=== PATIENT | female | born 1970 | race African-American/Black ===

== ENCOUNTER 2021-06-06 13:26 | Emergency (ER) | payer MEDICAID, SELFPAY ==
--- NOTE | ~2021-06-06 | XR_ITS ---
EXAMINATION: CERVICAL SPINE AND LEFT SHOULDER CLINICAL INFORMATION: Worsening neck pain and shoulder pain. COMPARISON: None TECHNIQUE: 3 views of the cervical spine and 3 views of the left shoulder FINDINGS: There is no abnormal prevertebral soft tissue swelling identified. No acute cervical spine fracture is noted. There is some degenerative disc narrowing with marginal spurring C4-C6. 3 views of the left shoulder do not demonstrate any evidence of acute fracture or dislocation. No calcific tendinitis. Glenohumeral joint appears unremarkable. No widening of the coracoclavicular space. XR/XR cervical spine 3V IMPRESSION: Mild cervical spondylosis of the cervical spine without evidence of acute fracture. No significant bony abnormality of the left shoulder.
--- NOTE | ~2021-06-06 | XR_ITS ---
EXAMINATION: CERVICAL SPINE AND LEFT SHOULDER CLINICAL INFORMATION: Worsening neck pain and shoulder pain. COMPARISON: None TECHNIQUE: 3 views of the cervical spine and 3 views of the left shoulder FINDINGS: There is no abnormal prevertebral soft tissue swelling identified. No acute cervical spine fracture is noted. There is some degenerative disc narrowing with marginal spurring C4-C6. 3 views of the left shoulder do not demonstrate any evidence of acute fracture or dislocation. No calcific tendinitis. Glenohumeral joint appears unremarkable. No widening of the coracoclavicular space. XR/XR shoulder LT min 2V IMPRESSION: Mild cervical spondylosis of the cervical spine without evidence of acute fracture. No significant bony abnormality of the left shoulder.
[2021-06-06 13:36] VITALS: BP 128/80; PULSE 68; RESP 18; TEMP 36.6; O2SAT 98; BMI 32.9
--- NOTE | 2021-06-06 13:47 | ED_ITS ---
HPI - Neck Pain/Injury General Chief Complaint: General Medical Stated Complaint: neck pain down into shoulder Time Seen by Provider: 06/06/21 13:44 Source: patient Mode of arrival: ambulatory Limitations: no limitations History of Present Illness HPI Narrative: Patient is a 50-year-old female with no significant past medical history. Reports that she had onset of left lateral neck pain extending across the top of her shoulder that first began 1 month ago. She was evaluated at [facility] and states that she was prescribed pain medication and a muscle relaxer which alleviated her pain. She states that pain came back yesterday and is more severe. She has tried taking Tylenol and ibuprofen without relief. Denies any precipitating injury, fall, headache, vision changes, fevers, chills, upper/l ower extremity weakness, numbness or tingling of the arms or legs, coordination difficulties, bladder/ bowel dysfunction, personal history of cancer, or unexplained weight loss. MD complaint: neck pain Onset (ago): month(s) Radiation: left lateral and left shoulder Severity: severe Severity scale (1-10): 8 Quality: aching and spasming Duration: constant Relieving factors: none Exacerbating factors: movement of extremity and movement of neck Associated symptoms: none Treatments prior to arrival: acetaminophen Related Data Previous Rx's Medication Instructions Recorded cyclobenzaprine 10 mg tablet 10 mg PO BID PRN #10 tab 06/06/21 Allergies Allergy/AdvReac Type Severity Reaction Status Date / Time No Known Allergies Allergy Verified 06/06/21 14:08 Review of Systems Review of Systems: Constitutional : No Weight loss, No Fever, No Chills, ENT/Mouth : No Hearing loss, No Ear Pain, No Nasal Congestion, No Sinus Pain, No Hoarseness, No sore throat, No Rhinorrhea, No Swallowing Difficulty Cardiovascular : No Chest Pain, No SOB Respiratory : No Cough, No Dyspnea Gastrointestinal : No Nausea, No Vomiting, No Diarrhea, No abdominal Pain, No Hematochezia, No Melena Genitourinary : No Dysuria, No Urinary Frequency, No Hematuria, No Urinary Incontinence Musculoskeletal : positive neck pain Skin : No Skin Lesions, No rash Neuro : No Weakness, No Numbness, No Paresthesias, no loss of bowel or bladder incontinence, no saddle anesthesia All other systems reviewed and are negative [facility] Past Medical History Attestation statement: The following information was validated with the patient. Source: old records reviewed Medical History No known health problems Social History Social History Advance Directives: No Advance Directives Information Provided: No Physical Exam Vital Signs: Vital Signs: Last Vital Signs Temp 97.9 F 06/06/21 13:36 Pulse 68 06/06/21 13:36 Resp 18 06/06/21 13:36 BP 128/80 06/06/21 13:36 Pulse Ox 98 06/06/21 13:36 BMI result Body Mass Index 32.9 Vital signs have been reviewed as normal and appeared to be correct. Blood pressure normal.? Heart rate normal.? Respiration rate normal. Temperature normal.? Oxygen saturation normal. Appearance: Alert.?Oriented to person, place and time. No acute distress.?Normal affect. Eyes: Pupils equal, round and reactive to light.? ENT: Pharynx normal.?? Neck: Normal inspection.? Neck supple.??No palpable midline C-spine tenderness, step-offs, deformities. Provocative maneuvers are negative. Tenderness to palpation along the left trapezius muscle CVS: Heart sounds normal. Normal heart rate and rhythm.? Pulses normal.?? Respiratory: No respiratory distress.? Lung sounds clear to auscultation bilaterally?? Abdomen: Soft and non-tender. Normoactive bowel sounds. No pulsatile mass.?? Skin: Skin warm and dry.? Normal skin color.? Normal skin turgor.?? Extremities: No lower extremity edema.? No calf ttp? Neuro: Moves all extremities spontaneously. Sensation intact bilaterally. No focal neuro deficits. Ambulates with normal steady gait. Course Course Course Narrative: Patient is a 50 year female being evaluated for left lateral neck/left shoulder pain in the absence of precipitating injury. She is well appearing, nontoxic, afebrile, not tachycardic. No meningismus, unlikely to be meningitis. Not consistent with spinal cord syndrome spinal epidural abscess, discitis. Neck consistent with thoracic outlet syndrome as she is without paresthesias. She has had no precipitating injury, trauma, or fall therefore suspect fracture dislocation to be unlikely. Patient requesting to have x-ray imaging despite this, will order x-ray of the cervical spine and left shoulder was this may reveal degenerative changes that may be causing her pain and I did advise her that this would not change the disposition or treatment regimen. Patient to receive cyclobenzaprine and Toradol in the emergency department for pain. Disposition will be pending results Reevaluation(s) Reevaluation #1: Patient reports some improvement in neck pain and shoulder pain after being medicated. Cervical spine x-ray reveals mild spondylosis, shoulder x-rays normal. Patient is stable for discharge home, discussed reasons to return to the emergency department including but not limited to; fall, headache, vision changes, fevers, chills, upper/lower extremity weakness, numbness or tingling of the arms or legs, coordination difficulties, bladder/ bowel dysfunction, or unexplained weight loss. Patient is agreeable with plan of care all questions answered. Time: 15:48 [facility] - Neck Pain/Injury Medical Records Attestation: I reviewed the patient's medical records. Imaging Data Cervical XR: Radiologist's impression: IMPRESSION: Mild cervical spondylosis of the cervical spine without evidence of acute fracture. ?? Left shoulder XR: Radiologist's impression: IMPRESSION:? No significant bony abnormality of the left shoulder.? Discharge Plan Discharge Clinical Impression: Strain of left trapezius muscle, Cervical spondylosis Patient Disposition: Home, Self-Care Instructions: Muscle Strain (ED), Neck Pain (ED) Additional Instructions: Your evaluated in the emergency department for left-sided neck pain and left shoulder pain. You had an x-ray of your neck indicates to have spondylosis, this is age related wear and tear of the discs in your neck. You may use [id number] Tylenol every 6 hours, not to exceed 4000 mg daily and ibuprofen 600 mg every 8 hours as needed for pain. You have been given an additional prescription for Flexeril, this is a muscle relaxer, if the Tylenol and ibuprofen is not helpful. Should not drive or operate machinery while taking this medication as it may make you drowsy. Please contact your primary care provider to schedule a follow-up appointment in 1-3 days. You may return to the emergency department with any new or worsening symptoms or concerns as we discussed, including but not limited to severe worsening pain, numbness or tingling or weakness of your arms, hands, legs, or feet, difficulty walking, loss bladder or bowel control. Prescriptions: New cyclobenzaprine 10 mg tablet 10 mg PO BID PRN (Reason: muscle spasm) Qty: 10 0RF
[2021-06-06] MEDS: Cyclobenzaprine HCl 10 MG TABLET PO (14:27)
[2021-06-06] MEDS: Ketorolac Tromethamine 30 MG/ML VIAL IM (14:27)
[2021-06-06 15:51] VITALS: RESP 16
--- NOTE | 2021-06-06 15:59 | ED.GENADULT ---
HPI - General Adult General Chief complaint: General Medical Stated complaint: neck pain down into shoulder Time Seen by Provider: 06/06/21 13:44 Source: patient Mode of arrival: ambulatory Limitations: no limitations History of Present Illness HPI narrative: Patient is a 50-year-old female with no significant past medical history. Reports that she had onset of left lateral neck pain extending across the top of her shoulder that first began 1 month ago. She was evaluated at [facility] and states that she was prescribed pain medication and a muscle relaxer which alleviated her pain. She states that pain came back yesterday and is more severe. She has tried taking Tylenol and ibuprofen without relief. Denies any precipitating injury, fall, headache, vision changes, fevers, chills, upper/lower extremity weakness, numbness or tingling of the arms or legs, coordination difficulties, bladder/ bowel dysfunction, personal history of cancer, or unexplained weight loss. Location: neck Related Data Previous Rx's Medication Instructions Recorded cyclobenzaprine 10 mg tablet 10 mg PO BID PRN #10 tab 06/06/21 Allergies Allergy/AdvReac Type Severity Reaction Status Date / Time No Known Allergies Allergy Verified 06/06/21 14:08 Review of Systems Review of Systems: Constitutional : No Weight loss, No Fever, No Chills, ENT/Mouth : No Hearing loss, No Ear Pain, No Nasal Congestion, No Sinus Pain, No Hoarseness, No sore throat, No Rhinorrhea, No Swallowing Difficulty Cardiovascular : No Chest Pain, No SOB Respiratory : No Cough, No Dyspnea Gastrointestinal : No Nausea, No Vomiting, No Diarrhea, No abdominal Pain, No Hematochezia, No Melena Genitourinary : No Dysuria, No Urinary Frequency, No Hematuria, No Urinary Incontinence Musculoskeletal : positive neck pain Skin : No Skin Lesions, No rash Neuro : No Weakness, No Numbness, No Paresthesias, no loss of bowel or bladder incontinence, no saddle anesthesia [facility] Past Medical History Attestation statement: The following information was validated with the patient. Source: old records reviewed Medical History No known health problems Social History Social History Advance Directives: No Advance Directives Information Provided: No Physical Exam Vital Signs: Vital Signs: Last Vital Signs Temp 97.9 F 06/06/21 13:36 Pulse 68 06/06/21 13:36 Resp 16 06/06/21 15:51 BP 128/80 06/06/21 13:36 Pulse Ox 98 06/06/21 13:36 BMI result Body Mass Index 32.9 Vital signs have been reviewed as normal and appeared to be correct. Blood pressure normal.? Heart rate normal.? Respiration rate normal. Temperature normal.? Oxygen saturation normal. Appearance: Alert. Oriented to person, place and time. No acute distress. Normal affect. Eyes: Pupils equal, round and reactive to light. ENT: Pharynx normal. Neck: Normal inspection. Neck supple. No palpable midline C-spine tenderness, step-offs, deformities. Provocative maneuvers are negative. Tenderness to palpation along the left trapezius muscle CVS: Heart sounds normal. Normal heart rate and rhythm. Pulses normal. Respiratory: No respiratory distress. Lung sounds clear to auscultation bilaterally Abdomen: Soft and non-tender. Normoactive bowel sounds. No pulsatile mass. Skin: Skin warm and dry. Normal skin color. Normal skin turgor. Extremities: No lower extremity edema. No calf ttp Neuro: Moves all extremities spontaneously. Sensation intact bilaterally. No focal neuro deficits. Ambulates with normal steady gait. Course Course Course Narrative: Patient is a 50 year female being evaluated for left lateral neck/left shoulder pain in the absence of precipitating injury. She is well appearing, nontoxic, afebrile, not tachycardic. No meningismus, unlikely to be meningitis. Not consistent with spinal cord syndrome spinal epidural abscess, discitis. Neck consistent with thoracic outlet syndrome as she is without paresthesias. She has had no precipitating injury, trauma, or fall therefore suspect fracture dislocation to be unlikely. Patient requesting to have x-ray imaging despite this, will order x-ray of the cervical spine and left shoulder was this may reveal degenerative changes that may be causing her pain and I did advise her that this would not change the disposition or treatment regimen. Patient to receive cyclobenzaprine and Toradol in the emergency department for pain. Disposition will be pending results Reevaluation(s) Reevaluation #1: Patient reports some improvement in neck pain and shoulder pain after being medicated. Cervical spine x-ray reveals mild spondylosis, shoulder x-rays normal. Patient is stable for discharge home, discussed reasons to return to the emergency department including but not limited to; fall, headache, vision changes, fevers, chills, upper/lower extremity weakness, numbness or tingling of the arms or legs, coordination difficulties, bladder/ bowel dysfunction, or unexplained weight loss. Patient is agreeable with plan of care all questions answered. Time: 15:48 Medical Decision Making Medical Records Medical records reviewed: Yes I reviewed the patient's medical records. Imaging Data neck and L shoulder XR: Radiologist's impression: IMPRESSION: Mild cervical spondylosis of the cervical spine without evidence of acute fracture. ? No significant bony abnormality of the left shoulder.? Discharge Plan Discharge Clinical Impression: Strain of left trapezius muscle, Cervical spondylosis Patient Disposition: Home, Self-Care Instructions: Muscle Strain (ED), Neck Pain (ED) Additional Instructions: Your evaluated in the emergency department for left-sided neck pain and left shoulder pain. You had an x-ray of your neck indicates to have spondylosis, this is age related wear and tear of the discs in your neck. You may use [id number] Tylenol every 6 hours, not to exceed 4000 mg daily and ibuprofen 600 mg every 8 hours as needed for pain. You have been given an additional prescription for Flexeril, this is a muscle relaxer, if the Tylenol and ibuprofen is not helpful. Should not drive or operate machinery while taking this medication as it may make you drowsy. Please contact your primary care provider to schedule a follow-up appointment in 1-3 days. You may return to the emergency department with any new or worsening symptoms or concerns as we discussed, including but not limited to severe worsening pain, numbness or tingling or weakness of your arms, hands, legs, or feet, difficulty walking, loss bladder or bowel control. Prescriptions: New cyclobenzaprine 10 mg tablet 10 mg PO BID PRN (Reason: muscle spasm) Qty: 10 0RF Interventions: ED Discharge Assessment Last Done: 06/06/21 15:52 Discharge Date/Time: 06/06/21 15:54
== END 2021-06-06 15:54 | disposition home or self-care (01) ==
LOC: HO.ED 14:26
PROVIDERS: Emergency Provider Emergency Medicine Emergency Medical Services
DX: S16.1XXA Strain of muscle, fascia and tendon at neck level, initial encounter (principal); M47.892 Other spondylosis, cervical region; M25.512 Pain in left shoulder; M54.2 Cervicalgia; X58.XXXA Exposure to other specified factors, initial encounter; Y93.9 Activity, unspecified; Y92.9 Unspecified place or not applicable; Y99.9 Unspecified external cause status; Z79.899 Other long term (current) drug therapy
CPT/HCPCS: 72040; 73030; 96372; 99283; 99284; J1885